=== PATIENT | female | born 1945 | race Caucasian/White ===

== ENCOUNTER 2021-11-06 19:04 | Emergency (ER) | payer OTHER, SELFPAY ==
[2021-11-06 19:15] VITALS: BP 195/121; PULSE 78; RESP 16; TEMP 36.3; O2SAT 96; BMI 31.1
--- NOTE | 2021-11-06 19:29 | ED.GENADULT ---
HPI - General Adult General Chief complaint: Nausea/Vomiting Stated complaint: Low Sodium Time Seen by Provider: 11/06/21 19:17 Source: patient History of Present Illness HPI narrative: 76-year-old female coming in today complaining of vomiting that started this morning. She states that she has vomited 4 or 5 times today and is unable to keep anything down. She does believe that she took her medications this morning in those did stay down. She denies fevers. Had an episode of chills earlier. Denies any diarrhea. Denies any urinary symptoms such as increased frequency, urgency or dysuria. Denies any blood in her vomitus. She denies any chest or abdominal pain. No significant headache. No weakness or dizziness. Denies any vertiginous symptoms. Denies any recent traveling. States that this has happened in the past when her sodium gets too low. States that she generally always feels better after a L of normal saline. Related Data Home Medications Medication Instructions Recorded Confirmed amlodipine 5 mg tablet 5 mg PO DAILY 11/06/21 11/06/21 losartan 100 mg tablet 100 mg PO DAILY 11/06/21 11/06/21 Allergies Allergy/AdvReac Type Severity Reaction Status Date / Time CAM Inhibitors Allergy Mild Cough Verified 11/06/21 19:18 Review of Systems Status of ROS: Reports: 10 or more systems reviewed and unremarkable except as noted in History and below [facility] Medical History Hypertension Hyponatremia Leukocytosis Surgical History H/O: hysterectomy History of bilateral knee replacement History of cholecystectomy Social History Smoking Status: Never smoker Do you use any of these nicotine containing products: None Second hand tobacco smoke exposure: No How often do you have a drink containing alcohol: never AUDIT-C Alcohol total score: 0 Non-prescribed substance use: denies use Exam Narrative: Exam Narrative: Well-nourished well-developed patient in no acute distress. Alert and oriented. Answers questions appropriately. Mood and affect are appropriate. Thoughts are goal oriented and rational. No tangential or magical thinking noted. Patient speaks in full sentences without needing to catch their breath. HEENT: Normocephalic atraumatic. Pupils are equally round reactive to light. Extraocular muscles are intact. Conjunctivae are moist without any icterus noted. Slightly dry mucous membranes. Posterior pharynx is normal. Neck is soft without any lymphadenopathy or thyromegaly. No masses are appreciated. Cardiovascular: Heart is regular rate and rhythm S1 and S2 are present without any murmurs. Lungs: Clear to auscultation bilaterally no wheezes rhonchi or rales are appreciated. Patient takes deep breaths without any discomfort. Abdomen: Soft and nontender nondistended with normal bowel sounds. No guarding or rebound. No masses or organomegaly appreciated. Extremities: Bilateral lower extremities are without edema. Normal DP and PT pulses. Skin: Well perfused without any obvious rashes. Const: Vital Signs, click to edit/add: Vital Signs - 24 hr 11/06/21 19:15 11/06/21 20:00 Temperature 97.3 F L Pulse Rate [Left] 78 78 Respiratory Rate 16 18 Blood Pressure [Ri t Upper Arm] 195/121 H 175/93 H Pulse Oximetry 96 99 Course Course Hospital Course: IV was established an IV fluids were started. Labs were drawn. Vital Signs Vital signs: Initial Vital Signs Temperature 97.3 F L 11/06/21 19:15 Temperature Source Temporal Artery Scan 11/06/21 19:15 Pulse Rate 78 11/06/21 19:15 Respiratory Rate 16 11/06/21 19:15 Blood Pressure 195/121 H 11/06/21 19:15 Blood Pressure Mean 145 11/06/21 19:15 Blood Pressure Position Semi-Fowlers 11/06/21 19:15 Pulse Oximetry 96 11/06/21 19:15 Oxygen Delivery Method 11/06/21 19:15 Vital Signs Temperature 97.3 F L 11/06/21 19:15 Pulse Rate 78 11/06/21 19:15 Respiratory Rate 16 11/06/21 19:15 Blood Pressure 195/121 H 11/06/21 19:15 Pulse Oximetry 96 11/06/21 19:15 Temperature 97.3 F L 11/06/21 19:15 Pulse Rate 78 11/06/21 20:00 Respiratory Rate 18 11/06/21 20:00 Blood Pressure 175/93 H 11/06/21 20:00 Pulse Oximetry 99 11/06/21 20:00 Medical Decision Making MDM Narrative Medical decision making narrative: 76-year-old female with episodes of vomiting and hyponatremia. Patient states that this has happened to her multiple times in the past. He received a L of normal saline while she was here did not have any more vomiting episodes. Patient will be discharged home with close followup recommended repeat lab work for her as well. Lab Data Lab results reviewed: Yes I reviewed the patient's lab results Lab results narrative: Her sodium was indeed low at 129. Lactate was up at 2.5. UA showing 2+ blood however only 0-2 RBCs on microscopic examination. Labs: Lab Results 11/06/21 11/06/21 11/06/21 Range/Units 19:27 19:27 19:40 WBC (4.50-11.00) K/uL RBC (4.00-5.20) m/uL Hgb (12.0-16.0) gm/dL Hct (33.0-51.0) % MCV (80-100) fL MCH (26-34) pg MCHC (32-36) gm/dL RDW Coeff of Jovany (11.5-15.5) % Plt Count (140-440) K/uL Neut % (Auto) (42.0-72.0) % Lymph % (Auto) (20-44) % [place] % (Auto) (0.0-11.0) % Eos % (Auto) (0.0-7.0) % Baso % (Auto) (0.0-3.0) % Neut # (Auto) (1.7-7.0) K/uL Lymph # (Auto) (0.90-2.90) K/uL [place] # (Auto) (0.00-0.90) K/UL Eos # (Auto) (0.00-0.50) K/uL Baso # (Auto) (0.00-0.30) K/uL Abs Immat Gran (auto) (0.00-0.30) K/uL Imm/Tot Granulo (auto) % Sodium (135-149) mmol/L Potassium (3.6-5.1) mmol/L Chloride (96-114) mmol/L Carbon Dioxide (20-32) mmol/L BUN (7-30) mg/dL Creatinine (0.5-1.5) mg/dL Estimated Creat Clear Glucose (60-115) mg/dL Lactate (0.5-1.9) mmol/L Calcium (8.4-10.6) mg/dL Total Bilirubin (0.1-1.5) mg/dL Direct Bilirubin (0.0-0.5) mg/dL AST (12-35) U/L ALT (4-35) U/L Alkaline Phosphatase (40-150) U/L Total Protein (6.0-8.3) g/dL Albumin (3.3-5.0) g/dL Urine Color Yellow (Yellow) Urine Appearance Clear (Clear) Urine pH 6.0 (5.0-8.5) Ur Specific [place] 1.025 (1.000-1.030) Urine Protein 2+ A (Negative) Urine Glucose (UA) Negative (Negative) Urine Ketones Trace A (Negative) Urine Blood 1+ A (Negative) Urine Nitrite Negative (Negative) Urine Bilirubin Negative (Negative) Urine Urobilinogen 0.2 (0.2-1.0) Ur Leukocyte Esterase Negative (Negative) Urine RBC 0-2 (0-2) Urine WBC 0-2 (0-5) Ur Squamous Epith Cells Few (None-Few) Urine Bacteria None (None) Urine Mucus Few A (None) SARS-CoV-2 (PCR) Negative SARS-CoV-2 (Negative) Influenza Type A (PCR) NEGATIVE (Negative) Influenza Type B (PCR) NEGATIVE (Negative) POC Troponin I 0.01 (0.01-0.04) ng/ml 11/06/21 11/06/21 11/06/21 Range/Units 19:50 19:50 19:50 WBC 7.95 (4.50-11.00) K/uL RBC 3.97 L (4.00-5.20) m/uL Hgb 13.6 (12.0-16.0) gm/dL Hct 39.1 (33.0-51.0) % MCV 99 (80-100) fL MCH 34 (26-34) pg MCHC 35 (32-36) gm/dL RDW Coeff of Jovany 11.7 (11.5-15.5) % Plt Count 381 (140-440) K/uL Neut % (Auto) 84.0 H (42.0-72.0) % Lymph % (Auto) 11.8 L (20-44) % [place] % (Auto) 2.8 (0.0-11.0) % Eos % (Auto) 0.0 (0.0-7.0) % Baso % (Auto) 0.9 (0.0-3.0) % Neut # (Auto) 6.70 (1.7-7.0) K/uL Lymph # (Auto) 0.90 (0.90-2.90) K/uL [place] # (Auto) 0.20 (0.00-0.90) K/UL Eos # (Auto) 0.00 (0.00-0.50) K/uL Baso # (Auto) 0.10 (0.00-0.30) K/uL Abs Immat Gran (auto) 0.00 (0.00-0.30) K/uL Imm/Tot Granulo (auto) 0.5 % Sodium 129 L (135-149) mmol/L Potassium 3.9 (3.6-5.1) mmol/L Chloride 97 (96-114) mmol/L Carbon Dioxide 21 (20-32) mmol/L BUN 6 L (7-30) mg/dL Creatinine 0.6 (0.5-1.5) mg/dL Estimated Creat Clear 39.04 Glucose 123 H (60-115) mg/dL Lactate 2.5 H (0.5-1.9) mmol/L Calcium 8.9 (8.4-10.6) mg/dL Total Bilirubin 0.6 (0.1-1.5) mg/dL Direct Bilirubin 0.3 (0.0-0.5) mg/dL AST 28 (12-35) U/L ALT 20 (4-35) U/L Alkaline Phosphatase 64 (40-150) U/L Total Protein 7.5 (6.0-8.3) g/dL Albumin 4.6 (3.3-5.0) g/dL Urine Color (Yellow) Urine Appearance (Clear) Urine pH (5.0-8.5) Ur Specific [place] (1.000-1.030) Urine Protein (Negative) Urine Glucose (UA) (Negative) Urine Ketones (Negative) Urine Blood (Negative) Urine Nitrite (Negative) Urine Bilirubin (Negative) Urine Urobilinogen (0.2-1.0) Ur Leukocyte Esterase (Negative) Urine RBC (0-2) Urine WBC (0-5) Ur Squamous Epith Cells (None-Few) Urine Bacteria (None) Urine Mucus (None) SARS-CoV-2 (PCR) (Negative) Influenza Type A (PCR) (Negative) Influenza Type B (PCR) (Negative) POC Troponin I (0.01-0.04) ng/ml ECG Data Attestation: I personally reviewed and interpreted this ECG as follows: (Normal sinus rhythm) Discharge Plan Discharge Clinical Impression: Hyponatremia, Vomiting Patient Disposition: Home, Self-Care Condition: Stable Additional Instructions: Recommend you follow-up with your primary care provider this coming week and have your sodium levels rechecked. Also recommend taking [id number] sodium chloride tablets if you have not already been doing so. Prescriptions: No Action amlodipine 5 mg tablet 5 mg PO DAILY 0RF losartan 100 mg tablet 100 mg PO DAILY 0RF Follow Up/Referrals: Aleisha Sagastume PA-C [Primary Care Provider] - Stand Alone Forms: [facility] Info Instructions
[2021-11-06] MEDS: 0.9 % SODIUM CHLORIDE 1000 ml 1,000 ML IV (19:50)
[2021-11-06 19:53] LABS: Appearance Urine Clear (Clear); Bilirubin Urine Negative (Negative); Blood Urine 1+ (Negative); Color Urine Yellow (Yellow); Glucose Urine Negative (Negative); Ketones Urine Trace (Negative); Leukocyte Esterase Urine Negative (Negative); Nitrite Urine Negative (Negative); Protein Urine 2+ (Negative); Specific Gravity Urine 1.025 (1.000-1.030); Urobilinogen Urine 0.2 (0.2-1.0)
[2021-11-06 20:00] VITALS: BP 175/93; PULSE 78; RESP 18; O2SAT 99
[2021-11-06 20:03] LABS: Lactate* 2.5 mmol/L (0.5-1.9)
[2021-11-06 20:06] LABS: Mucus Urine Few; RBC Urine 0-2 (0-2); Squamous Epithelial Cell Urine Few (None-Few); WBC Urine 0-2 (0-5)
[2021-11-06 20:11] LABS: Troponin, Point-of-Care* 0.01 ng/ml (0.01-0.04)
[2021-11-06 20:13] LABS: Red Blood Count 3.97 m/uL (4.00-5.20); White Blood Count* 7.95 K/uL (4.50-11.00)
[2021-11-06 20:14] LABS: Hematocrit 39.1 % (33.0-51.0); Hemoglobin* 13.6 gm/dL (12.0-16.0); Mean Corpuscular HGB Conc 35 gm/dL (32-36); Mean Corpuscular Hemoglobin 34 pg (26-34); Mean Corpuscular Volume 99 fL (80-100); Platelet Count* 381 K/uL (140-440); RDW Coefficient of Variation % 11.7 % (11.5-15.5)
[2021-11-06 20:15] LABS: Basophils Percent Auto 0.9 % (0.0-3.0); Immature Granulocytes Pct Auto 0.5 %; Lymphocytes Percent Auto 11.8 % (20-44); Monocytes Percent Auto 2.8 % (0.0-11.0); Slide Review Reflex No
[2021-11-06 20:20] LABS: Albumin* 4.6 g/dL (3.3-5.0); Chloride* 97 mmol/L (96-114); Potassium* 3.9 mmol/L (3.6-5.1); Sodium* 129 mmol/L (135-149)
[2021-11-06 20:22] LABS: Creatinine* 0.6 mg/dL (0.5-1.5); Est. Creatinine Clearance* 39.04; Estimated Glomerular Filt Rate 94.13
[2021-11-06 20:23] LABS: Alanine Aminotransferase* 20 U/L (4-35); Alkaline Phosphatase* 64 U/L (40-150); Aspartate Amino Transferase* 28 U/L (12-35); Bilirubin Direct* 0.3 mg/dL (0.0-0.5); Bilirubin Total* 0.6 mg/dL (0.1-1.5); Blood Urea Nitrogen* 6 mg/dL (7-30); Calcium* 8.9 mg/dL (8.4-10.6); Carbon Dioxide* 21 mmol/L (20-32); Glucose* 123 mg/dL (60-115); Total Protein* 7.5 g/dL (6.0-8.3)
[2021-11-06 21:20] LABS: PCR FLU A NEGATIVE (Negative); PCR FLU B NEGATIVE (Negative); SARS PCR* Negative SARS-CoV-2 (Negative)
== END 2021-11-06 21:56 | disposition home or self-care (01) ==
PROVIDERS: Emergency Provider Family Medicine; PCP Physician Assistant Medical
DX: E87.1 Hypo-osmolality and hyponatremia (principal); R11.10 Vomiting, unspecified
CPT/HCPCS: 36415; 80048; 80076; 81001; 83605; 84484; 85025; 87086; 87502; 87635; 93005; 96360; 99284; J7030

== ENCOUNTER 2022-01-16 09:13 | Outpatient (CLI) | payer OTHER, MEDICARE, SELFPAY ==
[2022-01-16 14:48] LABS: Chloride* 101 mmol/L (96-114); Potassium* 4.7 mmol/L (3.6-5.1); Sodium* 134 mmol/L (135-149)
[2022-01-16 14:51] LABS: Blood Urea Nitrogen* 7 mg/dL (7-30); Carbon Dioxide* 25 mmol/L (20-32); Creatinine* 0.6 mg/dL (0.5-1.5); Estimated Glomerular Filt Rate 94 ml/min
[2022-01-16 14:52] LABS: Calcium* 9.8 mg/dL (8.4-10.6); Glucose* 104 mg/dL (60-115)
== END 2022-01-16 09:14 | disposition home or self-care (01) ==
LOC: LKVREF 09:58
PROVIDERS: PCP Physician Assistant Medical; Visit Provider Physician Assistant Medical
DX: E87.1 Hypo-osmolality and hyponatremia (principal)
CPT/HCPCS: 80048

== ENCOUNTER 2022-05-09 10:58 | Outpatient (CLI) | payer OTHER, SELFPAY ==
[2022-05-09 14:00] LABS: Chloride* 90 mmol/L (96-114); Potassium* 4.8 mmol/L (3.6-5.1); Sodium* 125 mmol/L (135-149)
[2022-05-09 14:03] LABS: Blood Urea Nitrogen* 8 mg/dL (7-30); Carbon Dioxide* 28 mmol/L (20-32); Creatinine* 0.8 mg/dL (0.5-1.5); Estimated Glomerular Filt Rate 77 ml/min
[2022-05-09 14:04] LABS: Calcium* 9.6 mg/dL (8.4-10.6); Glucose* 122 mg/dL (60-115)
== END 2022-05-09 10:59 | disposition home or self-care (01) ==
PROVIDERS: PCP Physician Assistant Medical; Visit Provider Physician Assistant Medical
DX: E87.1 Hypo-osmolality and hyponatremia (principal)
CPT/HCPCS: 80048

== ENCOUNTER 2022-05-09 14:19 | Emergency (ER) | payer OTHER, SELFPAY ==
[2022-05-09 14:27] VITALS: BP 120/81; PULSE 104; RESP 18; TEMP 36.8; O2SAT 98; BMI 29.2
--- NOTE | 2022-05-09 14:47 | ED.GENADULT ---
HPI - General Adult General Time Seen by Provider: 14:47 Date Seen: 05/09/22 Chief complaint: Dizziness/Vertigo Stated complaint: Vomiting, headache, lethargy Time Seen by Provider: 05/09/22 14:28 Source: patient Mode of arrival: ambulatory Limitations: no limitations History of Present Illness HPI narrative: 77-year-old female who comes in today with fatigue, headache, and vomiting. Symptoms have been going on couple of days. She has a mild frontal headache, says she has been sleeping a lot the last couple of days. Vomiting started 2 days ago. Says she has had similar symptoms with hyponatremia. She denies abdominal pain, diarrhea, urinary symptoms, chest pain, shortness of breath. No new medications. Related Data Home Medications Medication Instructions Recorded Confirmed Sodium choloride PO 11/21/21 12/07/21 ondansetron HCl 4 mg tablet mg PO PRN 11/21/21 12/07/21 Previous Rx's Medication Instructions Recorded amlodipine 5 mg tablet 5 mg PO DAILY #90 tabs 12/08/21 losartan 100 mg tablet 100 mg PO DAILY #90 tabs 12/08/21 metoprolol succinate 25 mg 25 mg PO QDAY #90 tabs 02/17/22 tablet,extended release 24 hr ondansetron 4 mg disintegrating 4 mg PO Q8H #15 tabs 05/09/22 tablet Allergies Allergy/AdvReac Type Severity Reaction Status Date / Time CAM Inhibitors Allergy Mild Cough Verified 05/09/22 14:34 fosinopril Allergy Mild coughing Verified 05/09/22 14:34 lisinopril Allergy Mild coughing Verified 05/09/22 14:34 PFSH PFSH Medical History (Updated 05/09/22 @ 16:56 by Wilfrido Roberto MD) Cervical lymphadenopathy Hypertension Hyponatremia Surgical History (Updated 11/15/21 @ 13:51 by Rossy Palomo) H/O: hysterectomy History of bilateral knee replacement History of cholecystectomy Status post total knee replacement Social History Smoking Status: Never smoker Do you use any of these nicotine containing products: None Second hand tobacco smoke exposure: No How often do you have a drink containing alcohol: never AUDIT-C Alcohol total score: 0 Non-prescribed substance use: denies use Exam Narrative: Exam Narrative: General: Well-developed and well-nourished, no acute distress Head: Atraumatic and normocephalic Eyes: Pupils are equal reactive, extraocular motions intact, conjunctiva clear ENT: External nose and ears are normal, posterior pharynx without erythema or exudate Neck: No midline cervical tenderness, full spontaneous range of motion the neck, trachea midline, no adenopathy Heart: Regular rate and rhythm no murmurs or thrills Lungs: Clear to auscultation bilaterally without wheezes or crackles Abdomen: Soft, nontender, nondistended with active bowel sounds Musculoskeletal: No tenderness, deformity, or edema Neurologic: Awake, alert, and oriented x3, no gross focal neurologic deficits, cranial nerves intact as tested Psych: Mood and affect are appropriate Skin: No rashes Const: Vital Signs, click to edit/add: Vital Signs - 24 hr 05/09/22 14:27 05/09/22 16:04 Temperature 98.2 F Pulse Rate [Pulse Oximeter] 104 H 79 Respiratory Rate 18 16 Blood Pressure [Ri ght Upper Arm] 120/81 Pulse Oximetry 98 Oxygen Delivery Me thod Room Air Course Course Hospital Course: External records reviewed show the patient had sodium level checked today earlier and it was 125. No associated note with this. Will recheck, fluids are ordered. Given symptomatic hyponatremia, patient will likely need to be admitted for further evaluation and treatment. Reevaluation(s) Reevaluation #1: Labs independently interpreted by me demonstrate mild leukocytosis, no other acute abnormality of the CBC. Sodium is 125 and chloride is 90. Patient is not on any diuretics, does take amlodipine and losartan. She says she has not been eating and drinking well recently and so the low sodium may be due to decreased intake. Patient has had consistent hyponatremi for the several months, although usually more mild. Time: 16:34 Reevaluation #2: Patient rechecked. She is feeling better after fluids, Toradol, Zofran. We discussed findings on labs today which show hyponatremia but not much else. Her serum osmolality is low consistent with 2 hyponatremia. Recommend attention to free water intake, also stop losartan for now. Follow-up in clinic in 2-3 days. Further discussion with patient's spouse who is in the room now is that patient has a history of low sodium and has never really had it is evaluation for this. Recommend further urine studies and consider consultation with Nephrology if persists. As this appears to be a chronic problem, at this point do not think patient needs to be admitted but does need to be on a fluid restriction with close follow-up. Time: 16:51 Vital Signs Vital signs: Initial Vital Signs Temperature 98.2 F 05/09/22 14:27 Temperature Source Temporal Artery Scan 05/09/22 14:27 Pulse Rate 104 H 05/09/22 14:27 Pulse Rhythm 05/09/22 14:27 Pulse Strength 3+ Normal 05/09/22 14:27 Respiratory Rate 18 05/09/22 14:27 Blood Pressure 120/81 05/09/22 14:27 Blood Pressure Mean 94 05/09/22 14:27 Blood Pressure Position Sitting 05/09/22 14:27 Pulse Oximetry 98 05/09/22 14:27 Oxygen Delivery Method 05/09/22 14:27 Vital Signs Temperature 98.2 F 05/09/22 14:27 Pulse Rate 104 H 05/09/22 14:27 Respiratory Rate 18 05/09/22 14:27 Blood Pressure 120/81 05/09/22 14:27 Pulse Oximetry 98 05/09/22 14:27 Oxygen Delivery Method 05/09/22 14:27 Temperature 98.2 F 05/09/22 14:27 Pulse Rate 79 05/09/22 16:04 Respiratory Rate 16 05/09/22 16:04 Blood Pressure 120/81 05/09/22 14:27 Pulse Oximetry 98 05/09/22 14:27 Oxygen Delivery Method 05/09/22 14:27 Medical Decision Making Lab Data Labs: Lab Results 05/09/22 05/09/22 05/09/22 Range/Units 14:44 14:44 15:01 WBC 11.13 H (4.50-11.00) K/uL RBC 4.38 (4.00-5.20) m/uL Hgb 15.0 (12.0-16.0) gm/dL Hct 41.5 (33.0-51.0) % MCV 95 (80-100) fL MCH 34 (26-34) pg MCHC 36 (32-36) gm/dL RDW Coeff of Jovany 11.3 L (11.5-15.5) % Plt Count 447 H (140-440) K/uL Neut % (Auto) 71.5 (42.0-72.0) % Lymph % (Auto) 18.1 L (20-44) % [place] % (Auto) 9.0 (0.0-11.0) % Eos % (Auto) 0.1 (0.0-7.0) % Baso % (Auto) 0.3 (0.0-3.0) % Neut # (Auto) 8.00 H (1.7-7.0) K/uL Lymph # (Auto) 2.00 (0.90-2.90) K/uL [place] # (Auto) 1.00 H (0.00-0.90) K/UL Eos # (Auto) 0.00 (0.00-0.50) K/uL Baso # (Auto) 0.00 (0.00-0.30) K/uL Sodium 125 L (135-149) mmol/L Potassium 3.8 (3.6-5.1) mmol/L Chloride 94 L (96-114) mmol/L Carbon Dioxide 25 (20-32) mmol/L BUN 8 (7-30) mg/dL Creatinine 0.6 (0.5-1.5) mg/dL Estimated Creat Clear 40.21 Estimated GFR 94 ml/min Glucose 117 H (60-115) mg/dL Calcium 9.1 (8.4-10.6) mg/dL Urine Color Yellow (Yellow) Urine Appearance Clear (Clear) Urine pH 7.5 (5.0-8.5) Ur Specific [place] 1.015 (1.000-1.030) Urine Protein Negative (Negative) Urine Glucose (UA) Negative (Negative) Urine Ketones Negative (Negative) Urine Blood Negative (Negative) Urine Nitrite Negative (Negative) Urine Bilirubin Negative (Negative) Urine Urobilinogen 0.2 (0.2-1.0) Ur Leukocyte Esterase Negative (Negative) Urine RBC 0-2 (0-2) Urine WBC 0-2 (0-5) Ur Squamous Epith Cells None (None-Few) Urine Bacteria Few A (None) Discharge Plan Discharge Clinical Impression: Hyponatremia Patient Disposition: Home w/ Parent or Adult Condition: Improved Instructions: Hyponatremia (ED) Additional Instructions: Stop losartan. Follow-up with your primary care provider in 2-3 days for recheck. Activity Level: No Restrictions Discharge Diet: 1500 ml Fluid Restriction Prescriptions: New ondansetron 4 mg tablet,disintegrating 4 mg PO Q8H Qty: 15 0RF No Action ondansetron HCl 4 mg tablet PO PRN Sodium choloride PO amlodipine 5 mg tablet 5 mg PO DAILY Qty: 90 3RF Rx Instructions: Once daily for high blood pressure losartan 100 mg tablet 100 mg PO DAILY Qty: 90 0RF Rx Instructions: Once daily for high blood pressure metoprolol succinate 25 mg tablet extended release 24 hr 25 mg PO QDAY Qty: 90 0RF Rx Instructions: for blood pressure Follow Up/Referrals: Aleisha Sagastume PA-C [Primary Care Provider] - Stand Alone Forms: [facility] Info Instructions
[2022-05-09 15:04] LABS: Basophils Percent Auto 0.3 % (0.0-3.0); Eosinophils Percent Auto 0.1 % (0.0-7.0); Hematocrit 41.5 % (33.0-51.0); Lymphocytes Percent Auto 18.1 % (20-44); Mean Corpuscular HGB Conc 36 gm/dL (32-36); Mean Corpuscular Hemoglobin 34 pg (26-34); Mean Corpuscular Volume 95 fL (80-100); Neutrophils Percent Auto 71.5 % (42.0-72.0); Platelet Count* 447 K/uL (140-440); RDW Coefficient of Variation % 11.3 % (11.5-15.5); Red Blood Count 4.38 m/uL (4.00-5.20); White Blood Count* 11.13 K/uL (4.50-11.00)
[2022-05-09 15:08] LABS: Slide Review Reflex No
[2022-05-09] MEDS: 0.9 % SODIUM CHLORIDE 1000 ml 1,000 ML IV (15:15)
[2022-05-09 15:49] LABS: Appearance Urine Clear (Clear); Bilirubin Urine Negative (Negative); Blood Urine Negative (Negative); Color Urine Yellow (Yellow); Glucose Urine Negative (Negative); Ketones Urine Negative (Negative); Leukocyte Esterase Urine Negative (Negative); Nitrite Urine Negative (Negative); Protein Urine Negative (Negative); Specific Gravity Urine 1.015 (1.000-1.030); Urobilinogen Urine 0.2 (0.2-1.0); pH Urine 7.5 (5.0-8.5)
[2022-05-09 16:04] VITALS: PULSE 79; RESP 16
[2022-05-09 16:17] LABS: Bacteria Urine Few; RBC Urine 0-2 (0-2); WBC Urine 0-2 (0-5)
[2022-05-09 16:23] LABS: Chloride* 94 mmol/L (96-114); Potassium* 3.8 mmol/L (3.6-5.1); Sodium* 125 mmol/L (135-149)
[2022-05-09 16:26] LABS: Blood Urea Nitrogen* 8 mg/dL (7-30); Carbon Dioxide* 25 mmol/L (20-32); Creatinine* 0.6 mg/dL (0.5-1.5); Est. Creatinine Clearance* 40.21; Estimated Glomerular Filt Rate 94 ml/min
[2022-05-09 16:27] LABS: Calcium* 9.1 mg/dL (8.4-10.6); Glucose* 117 mg/dL (60-115)
[2022-05-09 17:10] VITALS: BP 151/92; PULSE 101; RESP 18; O2SAT 98
[2022-05-12 13:38] LABS: Hours Collected Not Provided hr; Total Volume Not Provided mL
== END 2022-05-09 17:19 | disposition home or self-care (01) ==
PROVIDERS: Emergency Provider Family Medicine; PCP Physician Assistant Medical
DX: E87.1 Hypo-osmolality and hyponatremia (principal); R39.9 Unspecified symptoms and signs involving the genitourinary system
CPT/HCPCS: 36415; 80048; 81001; 84300; 85025; 87086; 93005; 99283; 99284; J7030

== ENCOUNTER 2022-05-15 10:00 | Outpatient (CLI) | payer OTHER, SELFPAY | END 2022-05-15 10:01 | disposition home or self-care (01) | LOC: LKVREF 05-17 11:21 | PROVIDERS: PCP Physician Assistant Medical; Visit Provider Family Medicine | DX: R53.83 Other fatigue (principal); I10 Essential (primary) hypertension; E87.1 Hypo-osmolality and hyponatremia | CPT/HCPCS: 80048 ==

== ENCOUNTER 2022-06-27 13:18 | Outpatient (CLI) | payer OTHER, SELFPAY ==
--- NOTE | 2022-06-27 13:40 | CRLHL7_ITS ---
For Patients: As a result of the Cures Act, medical imaging exams and procedure reports are released immediately into your electronic medical record. You may view this report before your referring provider. If you have questions, please contact your health care provider. BILATERAL SCREENING MAMMOGRAM WITH COMPUTER-AIDED DETECTION AND TOMOSYNTHESIS TECHNIQUE: CC and MLO views were obtained. These mammographic images have been obtained using full-field digital technique. These mammographic images were interpreted with the benefit of computer-aided detection. Breast Tomosynthesis was used in this interpretation. COMPARISON FILM: 04/12/2021, 03/04/2020, 01/28/2019. FINDINGS: The breasts are almost entirely fatty IMPRESSION: There is no radiographic evidence for malignancy. ASSESSMENT: BI-RADS Category 2: Benign RECOMMENDATION: Routine screening mammogram in 1 year. A lay language report of this examination will be provided to the patient. Chase Riley M.D. Diagnostic/Nuclear Medicine Radiologist [email or web address] TAMIA/Dictated by: Chase Riley MD @ 06/28/2022 8:42:00 AM (Electronically Signed)
== END 2022-06-27 13:19 | disposition home or self-care (01) ==
PROVIDERS: PCP Physician Assistant Medical; Visit Provider Physician Assistant Medical
DX: Z12.31 Encounter for screening mammogram for malignant neoplasm of breast (principal)
CPT/HCPCS: 77063; 77067

== ENCOUNTER 2023-05-16 07:58 | Outpatient (CLI) | payer OTHER, SELFPAY | END 2023-05-16 07:59 | disposition home or self-care (01) | PROVIDERS: PCP Physician Assistant Medical; Visit Provider Physician Assistant Medical | DX: Z00.00 Encounter for general adult medical examination without abnormal findings (principal); I10 Essential (primary) hypertension; E87.1 Hypo-osmolality and hyponatremia; Z13.6 Encounter for screening for cardiovascular disorders; Z13.29 Encounter for screening for other suspected endocrine disorder | CPT/HCPCS: 80053; 80061; 84443 ==

== ENCOUNTER 2023-07-16 14:33 | Outpatient (CLI) | payer OTHER, SELFPAY ==
--- NOTE | 2023-07-16 15:00 | MM_ITS ---
Patient: YAZAN VALADEZ Facility:?[facility] Patient ID:?[id number] Site Patient ID:?[id number]. Site :?[id number] Study:?XRay-Breast Bilateral 3D W/CAD-07/16/2023 3:03:00 PM Ordering Physician:Tiana Final Report: BILATERAL SCREENING MAMMOGRAM WITH COMPUTER-AIDED DETECTION AND TOMOSYNTHESIS TECHNIQUE: CC and MLO views were obtained. These mammographic images have been obtained using full-field digital technique. These mammographic images were interpreted with the benefit of computer-aided detection. Breast Tomosynthesis was used in this interpretation. COMPARISON FILM: 06/27/22, 04/12/21, 03/04/20. FINDINGS: There are scattered areas of fibroglandular density. IMPRESSION: There is no radiographic evidence for malignancy. ASSESSMENT: BI-RADS Category 2: Benign RECOMMENDATION: Routine screening mammogram in 1 year. A lay language report of this examination will be provided to the patient. Jey Carl M.D. Diagnostic Radiologist [email or web address] DSM/sp R& Transcribed: 1:50 p.m. SP/Dictated by: Jey Carl MD @ 07/17/2023 8:50:00 AM Signed by:?Jey Carl MD @07/17/2023 2:48:31 PM (Electronic Signature)
== END 2023-07-16 14:34 | disposition home or self-care (01) ==
LOC: MAMMO 14:34
PROVIDERS: PCP Physician Assistant Medical; Visit Provider Physician Assistant Medical
DX: Z12.31 Encounter for screening mammogram for malignant neoplasm of breast (principal)
CPT/HCPCS: 77063; 77067

== ENCOUNTER 2024-07-28 13:03 | Outpatient (CLI) | payer OTHER, SELFPAY ==
--- NOTE | 2024-07-28 13:20 | CRLHL7_ITS ---
For Patients: As a result of the Century Cures Act, medical imaging exams and procedure reports are released immediately into your electronic medical record. You may view this report before your referring provider. If you have questions, please contact your health care provider. BILATERAL SCREENING MAMMOGRAM WITH COMPUTER-AIDED DETECTION AND TOMOSYNTHESIS TECHNIQUE: CC and MLO views were obtained. These mammographic images have been obtained using full-field digital technique. These mammographic images were interpreted with the benefit of computer-aided detection. Breast Tomosynthesis was used in this interpretation. COMPARISON FILM: 07/16/23, 06/27/22, 04/12/21. FINDINGS: There are scattered areas of fibroglandular density. IMPRESSION: There is no radiographic evidence for malignancy. ASSESSMENT: BI-RADS Category 2: Benign RECOMMENDATION: Routine screening mammogram in 1 year. A lay language report of this examination will be provided to the patient. Jey Carl M.D. Diagnostic Radiologist [email or web address] SP/Dictated by: Jey Carl MD @ 07/30/2024 8:52:00 AM (Electronically Signed)
== END 2024-07-28 13:04 | disposition home or self-care (01) ==
LOC: MAMMO 13:04
PROVIDERS: PCP Physician Assistant Medical; Visit Provider Physician Assistant Medical
DX: Z12.31 Encounter for screening mammogram for malignant neoplasm of breast (principal)
CPT/HCPCS: 77063; 77067

== ENCOUNTER 2024-08-29 08:20 | Outpatient (CLI) | payer OTHER, SELFPAY | END 2024-08-29 08:21 | disposition home or self-care (01) | LOC: NFLDREF 09-03 18:46 | PROVIDERS: PCP Physician Assistant Medical; Referring Provider Physician Assistant Medical; Visit Provider Physician Assistant Medical | DX: E78.5 Hyperlipidemia, unspecified (principal); I10 Essential (primary) hypertension; E87.1 Hypo-osmolality and hyponatremia | CPT/HCPCS: 80053; 80061 ==

== ENCOUNTER 2024-10-01 15:11 | Outpatient (CLI) | payer OTHER, SELFPAY ==
--- NOTE | 2024-10-01 15:30 | CRLHL7_ITS ---
For Patients: As a result of the Century Cures Act, medical imaging exams and procedure reports are released immediately into your electronic medical record. You may view this report before your referring provider. If you have questions, please contact your health care provider. DXA BONE MINERAL DENSITY STUDY Current height (in): 62. Weight (lb): 176.0 Menopause age: 34. Ethnicity: White. 1. Have you had a previous hip or vertebral fracture? No. 2. Have you had any fractures during your adult life which did not result from significant trauma (e.g., auto accident)? Yes. 3. Did either of your parents have a hip fracture? No. 4. Do you smoke? No. 5. Have you ever taken Glucocorticoids? No. 6. Do you have rheumatoid arthritis? No. 7. Do you have secondary osteoporosis? No. 8. Do you drink 3 or more alcoholic drinks per day? No. 9. Are you being treated for osteoporosis? No. 10. Have you ever taken any of the following medications: Actonel, Evista, Fosamax, Miacalcin, Reclast, Boniva, Forteo, HRT (i.e. estrogen/hormone therapy), Protelos, Prolia, Vitamin D, Calcium, other ??? please specify. ANSWER: No. 11. Do you have any of the following medical conditions: Anorexia or bulimia, asthma or emphysema, end stage renal disease, hyperparathyroidism, any seizure disorders, cancer, inflammatory bowel diseases, hysterectomy, other ??? please specify. ANSWER: Yes, Cancer and Hysterectomy. 12. What was your maximum height (inches)? 63. 13. Do you perform weight bearing exercise regularly? No. 14. Do you regularly consume dairy products? No. 15. Do you drink caffeinated beverages? Yes. 16. At what age did your period start? 15. 17. Are you premenopausal? No. 18. How many full term pregnancies have you had? 5. 19. Have you ever missed your period for more than 6 months in a row (not including or menopause)? No. TECHNIQUE: Bone mineral density study was performed using the [employer]ur[employer] cosmetics. FINDINGS: The results of the study expressed as bone mineral density (BMD) are as follows: Lumbar spine L1 to L3: BMD: 1.176 g/cm2. T-score: 1.4. Z-score: 3.9. Neck Left: BMD: 0.600 g/cm2. T-score: -2.2. Z-score: -0.1. Right: BMD: 0.624 g/cm2. T-score: -2.0. Z-score: 0.2. Total Left: BMD: 0.739 g/cm2. T-score: -1.7. Z-score: 0.3. Right: BMD: 0.751 g/cm2. T-score: -1.6. Z-score: 0.4. IMPRESSION: Osteopenia. COMPARISON: Compared with scan of 05/12/2020, the bone mineral density has decreased by 1.6 percent at the spine and increased by 8.3 percent at the hip. FRAX 10-year Fracture Risk Major Osteoporotic Fracture: 22 percent Hip Fracture: 6.0 percent Reported Risk Factors: [place] () Neck BMD=0.600, BMI=32.2, Previous Fracture Jey Carl M.D. Diagnostic Radiologist [email or web address] SHANNAN/mary DW/Dictated by: Jey Carl MD @ 10/06/2024 8:57:00 AM (Electronically Signed)
== END 2024-10-01 15:12 | disposition home or self-care (01) ==
LOC: RAD 15:11
PROVIDERS: PCP Physician Assistant Medical; Visit Provider Physician Assistant Medical
DX: Z13.820 Encounter for screening for osteoporosis (principal); M85.89 Other specified disorders of bone density and structure, multiple sites; Z78.0 Asymptomatic menopausal state
CPT/HCPCS: 77080

== ENCOUNTER 2025-04-19 16:36 | Emergency (ER) | payer OTHER, SELFPAY ==
--- OUTSIDE RECORDS SUMMARY | 2025-04-16 07:10 | XMS_ITS | Encounter Summary ---
Author Organization Formerly [facility] Address [address] [address] Care Team Providers Care Tube Bending Machine Operator Name Role Phone Aminta Brizuela MD Primary Care Provider [phone] Reason for Visit * ReasonCommentsRestorative ServicesComposite 32,23 Encounter Details DateTypeDepartmentCare Team (Latest Contact Info)Knynpozngas11/18/2025 7:10 AM CSTOffice Visit [facility] [place] [address] [place] [phone] Tabitha Maldonado DDS [address] [place] [address] Restorative Services (Composite 32,23) Social History Tobacco UseTypesPacks/DayYears UsedDateSmoking Tobacco: NeverSmokeless Tobacco: NeverAlcohol UseStandard Drinks/WeekCommentsNo5 (1 standard drink = 0.6 oz pure alcohol)CommentsNoSex and Gender InformationValueDate RecordedSex Assigned at BirthNot on fileLegal NdmMoxgqd39/10/2012 4:22 AM CDTGender Identity Not on fileSexual OrientationNot on fileOccupationIndustryJob Start DateJob End DateADMINISTRATORNot on fileNot on fileNot on filedocumented as of this encounter Progress Notes * Tabitha Maldonado DDS - 04/16/2025 7:10 AM CST DENTAL VISIT NOTE Subjective Reason for Visit/Chief Complaint: Marielle is a 80 y.o. female who presents for Restorative Services (Composite 32,23) Chief Complaint: No CC Objective/Assessment Chart Review: The following information was reviewed with the patient: Medical history, Dental history, Problem list, Periodontal charting, and Radiographs. Diagnosis: Fractured dental restorative material (primary encounter diagnosis) Prognosis: #23, #32 Favorable Plan Treatment Discussion: I discussed the Dental findings, Prognosis, Treatment options, Risks and complications associated with procedure, and Billing/Treatment estimate with the patient. All questions answered and the patient gave informed consent to proceed with dental treatment/services. Procedural Pause: Patient identity verified: Yes Treatment plan/site verified with the patient: Yes Instruments/equipment verified: Yes Any medication/allergy contraindications: No Completed Procedures: Anesthesia: Topical with 20% benzocaine 1.0 carpules 2% lidocaine with 1:100,000 epinephrine was administered with GABRIELA in Mandibular right No adverse side effects observed. Anesthesia was administered by Tabitha Maldonado DDS . Composite Baptism, #23, #32: Prepared with complete caries removal and minimal removal of tooth structure Isolated area with high speed suction, cotton rolls, and a cheek guard. Liner/Varnish/Base: N/A Bonding with Scotchbond Langford Plus material Preparation filled with composite material : Shade: A2 Polishing adjuncts: soflex discs and enhance polishing Composite Burs Verified occlusion, contacts, margins, and aesthetics Post-Op Instructions: Patient was advised of normal post-operative instructions and potential for post-operative sensitivity Care was assisted by MEREDITH Walden Next Planned Visit: Recall Tabitha Maldonado DDS 04/16/2025, 8:51 AM CC: [place] SCIENCE PROFESSOR documented in this encounter Plan of Treatment DateTypeDepartmentCare Team (Latest Contact Info)Lbsyzqzqsbl85/13/2026 10:30 AM CDTAppMission Hospital [facility] [address] [place] [phone] Sera Miller, [facility] [address] [place] [address] documented as of this encounter Procedures Procedure NamePriorityDate/TimeAssociated VhuhedconOezryxjz50 MO RESIN-BASED COMPOSITE-2 SURF-KAOFLUQGLWhlzljh98/18/2025 7:10 AM SOCIAL SCIENCE PROFESSOR Fractured dental restorative material 23 F COMPOSITE-1 SURFACE QLIACQZUFwhzfir60/18/2025 7:10 AM SOCIAL SCIENCE PROFESSOR Fractured dental restorative material documented in this encounter Visit Diagnoses Diagnosis Fractured dental restorative material- Primary Other unsatisfactory restorationist of existing tooth documented in this encounter Care Teams Team MemberRelationshipSpecialtyStart [place] [address] [place] [address] PCP - GeneralFamily Practice09/28/17documented as of this encounter
--- OUTSIDE RECORDS SUMMARY | 2025-04-19 16:38 | XMS_ITS | Clinical Summary ---
Author Organization [facility] Address [address] [place] [address] Care Team Providers Care Trolley Collector Name Role Phone Anabel Newby MD Primary Care Provider [phone] Allergies Active AllergyReactionsCriticalityNoted DateCommentsAce InhibitorsCough 07/05/20110643QjzfzvrwpNlhkzogqquih92/07/2012 intolerant Medications MedicationSigDispense QuantityRefillsLast FilledStart DateEnd DateStatus LOSARTAN POTASSIUM (LOSARTAN ORAL) Take 1 tablet by mouth once daily. Patient does not remember doseActive atenolol (TENORMIN) 25 mg tablet Take 25 mg by mouth once daily. Patient states she is starting this medication 07/06/11 - after stress testActive aspirin 81 mg tablet Take 81 mg by mouth once daily with a meal.Active MULTIVITAMIN ORAL Take 1 tablet by mouth once daily.Active DOCOSAHEXANOIC ACID/EPA (FISH OIL ORAL) Take 1 tablet by mouth once daily.Active ZINC ORAL Take 1 tablet by mouth once daily.Active CALCIUM ORAL Take 1 tablet by mouth once daily.Active MAGNESIUM ORAL Take 1 tablet by mouth once daily.Active Family History Medical HistoryRelationNameCommentsCancer-breastNo Family History Social History Tobacco UseTypesPacks/DayYears UsedDateSmoking Tobacco: Never Assessed CommentsUnknownSex and Gender InformationValueDate RecordedSex Assigned at Not on fileLegal SzbHylltq01/14/2013 6:23 AM CSTGender IdentityNot on fileSexual OrientationNot on file Plan of Treatment Not on file Insurance [employer] [id number] Care Teams Team MemberRelationshipSpecialtyStart DateEnd Date Anabel Newby MD PCP - General05/21/09
--- OUTSIDE RECORDS SUMMARY | 2025-04-19 16:38 | XMS_ITS | Clinical Summary ---
Author Organization [facility] Address [address], [place] [address] Care Team Providers Care Computer Information Systems Instructor Name Role Phone Aminta Brizuela MD Primary Care Provider [phone] Source Comments You are receiving this document as you are listed as the primary care provider,follow-up provider, or the patient has been referred to you for consultation.This is in compliance with the Medicare andMedicaid EHR Incentive Program,which states Providers who transition their patient to another setting of careor provider of care or refers their patient to another provider of care shouldprovide summary care record for each transition of care or referral. [facility] Allerg[facility] Active AllergyReactionsCriticalityNoted TznhNqaiyjemAwbqdcaciaBuiur41/18/2017Ace ZctfmbfswgZwajh42/11/4777KlbzntqukHquvudgcnixp65/07/2012 intolerant Medications MedicationSigDispense QuantityRefillsLast FilledStart DateEnd DateStatus aspirin (ASPIRIN, ENTERIC-COATED) 81 MG enteric coated tablet Take 81 mg by mouth daily.Active Multiple Vitamins-Calcium (ONE-A-DAY WOMENS OR) Active Polyethyl Glycol-Propyl Glycol (SYSTANE OP) Active metoprolol succinate (TOPROL XL) 50 MG 24 hour release tablet Take 1 Tab by mouth daily. 90 Tab Active Additional Information Patient not taking.Reported on 02/11/2018 amLODIPine (NORVASC) 2.5 MG tablet Take 1 Tablet by mouth daily. 90 Tablet 04/02/2018Active losartan (COZAAR) 100 MG tablet TAKE ONE TABLET BY MOUTH EVERY DAY 90 Tablet 06/18/2018Active amoxicillin (AMOXIL) 500 MG capsule Take 4 capsules 1 hour prior to appointment 8 Capsule 12/11/2018Active ondansetron (ZOFRAN-ODT) 4 MG disintegrating tablet 11/02/2018Active latanoprost (XALATAN) 0.005 % eye drop solution Place 1 Drop into right eye daily at bedtime. 2.5 mL Active Additional Information Patient not taking.Reported on 02/16/2020 bimatoprost (LUMIGAN) 0.03 % eye drop solution Place 1 Drop into right eye daily. 2.5 mL 1Active amoxicillin (AMOXIL) 500 MG capsule Take 1 Capsule (500 mg) by mouth three times a day. 15 Capsule 4Active ibuprofen (MOTRIN) 600 MG tablet Take 1 Tablet (600 mg) by mouth every 6 hours as needed for Pain. 30 Tablet 08/06/2023ctive Active Problems ProblemNoted DateDiagnosed NzpaFauelnhcaqpa21/04/2021Stage 3a chronic kidney aqfgtly3312/01/2020ssential okcecicvwuyx20/01/2017Cervical clquqa9508/26/2012 Encounters DateTypeDepartmentCare KfdlPyouafflcpm93/18/2025 7:10 AM CSTOffice Visit [facility] [address] [phone] Tabitha Maldonado DDS Restorative Services (Composite 32,23)02/03/2025 10:30 AM CDTOffice Visit Endodontics at [facility] [address] [address] Varghese Maldonado DDS, MS Endodontic Services (Co#13,14)01/24/2025 8:50 AM CDTOffice Visit [facility] [address] [phone] Marry Luong, LGADYS Dental Exam (No CC); Dental Hygiene (Last hyg recall 2021)from Last 3 Months Immunizations ImmunizationAdministration DatesNext DueInfluenza IIV3 (Trivalent) Fluzone Highdose, 65+ Yrs ([address])02/28/2017,01/19/2016Janssen COVID-19 Jwmproc9207/03/2020 PPSV23 (Pneumovax)10/02/2013Tdap10/02/2013Zoster (Zostavax)05/24/2009 Family History Medical HistoryRelationNameCommentsAlcohol/Drug AbuseBirth FatherDiabetes, Type IIBirth MotherHyperlipidemiaBrother 1HypertensionBrother 1Macular Degeneration Brother 1Cancer, ColonBrother 2HyperlipidemiaBrother 2HypertensionBrother 2 DeafnessBrother 3HyperlipidemiaBrother 3HypertensionBrother 3Macular DegenerationBrother 3BlindnessMaternal Grandmotherunknown etiology and brother CataractSister 1Coronary Artery DiseaseSister 1Diabetes, Type IISister 1 HyperlipidemiaSister 1HypertensionSister 1HypertensionSister 2Macular DegenerationSister 2Alzheimer'sSister 3Diabetes, Type IISister 3Hypertension Sister 3Kidney DisorderSister 3Thyroid DisorderSon 3GlaucomaNegative Family HistoryRetinal DetachmentNegative Family HistoryRelationNameStatusCommentsBirth FatherDeceasedBirth MotherDeceasedBrother 1DeceasedBrother 2DeceasedBrother 3 DeceasedDaughter 1AliveDaughter 2AliveMaternal GrandfatherDeceasedMaternal GrandmotherDeceasedOtherAlivehusbandPaternal GrandfatherDeceasedPaternal GrandmotherDeceasedSister 1AliveSister 2AliveSister 3AliveSon 1AliveSon 2Alive Son 3AliveSon 4Alive Social History Tobacco UseTypesPacks/DayYears UsedDateSmoking Tobacco: NeverSmokeless Tobacco: NeverAlcohol UseStandard Drinks/WeekCommentsNo5 (1 standard drink = 0.6 oz pure alcohol)CommentsNoSex and Gender InformationValueDate RecordedSex Assigned at BirthNot on fileLegal TwvFtqzqr37/10/2012 4:22 AM CDTGender Identity Not on fileSexual OrientationNot on fileOccupationIndustryJob Start DateJob End DateADMINISTRATORNot on fileNot on fileNot on file Last Filed Vital Signs Vital SignReadingTime TakenCommentsBlood Qrrnysxe552/7008 8:22 AM CDT Woqxk413001/24/2025 8:50 AM QQYKerehuqcozl02.8 ??C (98.3 ??F)05/04/2017 8:57 AM CSTRespiratory Iqln135305/04/2017 8:57 AM CSTOxygen Saturation--Inhaled Oxygen Concentration--Gfordz52.9 kg (171 lb 12.8 oz)05/04/2017 8:57 AM ZTUXgwqyu952.5 cm (5' 2)05/04/2017 8:57 AM CSTBody Mass Index31.42005/04/2017 8:57 AM INFORMATICS DEVELOPER Plan of Treatment DateTypeDepartmentCare Team (Latest Contact Info)Vkyzohzazrw53/13/2026 10:30 AM CDTAppointment [facility] [place] [address] [place] [phone] [facility] [address] [place], [place] [phone] Health MaintenanceDue DateLast GnqbJarcpxumXxocootdxsa1947Zoster/Shingles Vaccine (2 of 3)Dexa106/08/2011RSV Vaccine (1 - 1-dose 75+ series)2DTaP/Tdap/Td Vaccine (3 - Tdap)/08/2013, 05/30/2010 Medicare Annual Wellness Visit5COVID-19 Vaccine (2 - season) 503/09/2020Influenza Vaccine (#1)512/02/2020, 03/07/2019, 02/20/2018, Additional history existsHep C Screening (Preventive Services) Kyyikmrzj81/29/2015 (Not Applicable)Overridden with the intention of not completing the topicFIT Colon Cancer HlslchmznXrxavrpgmhpc34/07/2017, 08/12/2015, 04/08/20040995JqyopxeiolhNoqpakwjlrpk51/01/2017, 01/19/2016, 11/25/2014, Additional history existsPneumococcal Vaccine 50+ AebFgusnrbdr68/11/2020, 10/02/2013HepA VaccineAged OutNo longer eligible based on patient's age to complete this topicHepB VaccineAged OutNo longer eligible based on patient's age to complete this topicHib VaccineAged OutNo longer eligible based on patient's age to complete this topicMCV4 VaccineAged OutNo longer eligible based on patient's age to complete this topicMeningococcal B VaccineAged OutNo longer eligible based on patient's age to complete this topic Procedures Procedure NamePriorityDate/TimeAssociated IjirrksbdPymfhocn58 MO RESIN-BASED COMPOSITE-2 SURF-GPWEMLAAIFjyrlvl02/18/2025 7:10 AM INFORMATICS DEVELOPER Fractured dental restorative material 23 F COMPOSITE-1 SURFACE RUOOBNBRKndlegp55/18/2025 7:10 AM INFORMATICS DEVELOPER Fractured dental restorative material [facility] [facility] CAPTURE ONLY-LIMITED ELNTRTppopmd45/07/2025 10:30 AM CDT Visit for dental examination 13,14 LIMITED ORAL YMTUHFNIXSErtkhjh01/07/2025 10:30 AM CDT Visit for dental examination 12 FILM-PERIAPICAL WKLYFTyzeodg12/27/2025 8:50 AM CDT Stage 2 grade B generalized periodontitis per AAP/EFP 2017 classification LYNO-BQAYNBHG-PPTHDbggklr07/27/2025 8:50 AM CDT Stage 2 grade B generalized periodontitis per AAP/EFP 2017 classification PERIODIC ORAL QFDIXWRLNDCnirgdb04/27/2025 8:50 AM CDT Stage 2 grade B generalized periodontitis per AAP/EFP 2017 classification PROPHYLAXIS-ADULT EZSJIOVxcmtuo78/27/2025 8:50 AM CDT Stage 2 grade B generalized periodontitis per AAP/EFP 2017 classification FILM-QKSDYGVKBLsrwicf86/27/2025 8:50 AM CDT Stage 2 grade B generalized periodontitis per AAP/EFP 2017 classification LIPID PANEL & DIRECT LDL (IF NEEDED)Zppuubg1102/28/2017 11:13 AM CDT Routine health maintenance JOPOgmpwjs20/07/2017 8:00 AM CDT Special screening for malignant neoplasms, colon from Last 3 Months or Most Recently Relevant to Health Maintenance Results * (ABNORMAL) Lipid Panel and Direct LDL(If Needed) (02/28/2017 11:13 AM CDT) ComponentValueRef RangeTest MethodAnalysis TimePerformed AtPathologist SignatureHours Rhcunsv37eljetVWTB XISZNPUVYEQDPqwirralzdb640(H)0 - 199 mg/dl [facility] HTNRLQMBOESKJduhmxexphch027 - 149 mg/dlHPMG YYERISRYHYYHLZS81>40 mg/dl [facility] LABORATORIESLDL, Calc.131(H)0 - 129 mg/dlHPMG LABORATORIESNon HDL Chol, Aejy689ga/dlHPMG LABORATORIESSpecimen (Source)Anatomical Location / Laterality Collection Method / VolumeCollection TimeReceived Time02/28/2017 11:13 AM CDT 02/28/2017 11:14 AM CDT Narrative [facility] - 02/28/2017 3:46 PM CDT Performed at [facility], [address] [place] [address] Authorizing ProviderResult TypeResult StatusDeepthi DE LA FUENTE_1Final ResultPerforming OrganizationAddressCity/State/ZIP CodePhone Number [facility] [phone] * FIT COLON RECTAL CANCER SCREENING - Year 3 (01/04/2017 8:00 AM CDT)Component ValueRef RangeTest MethodAnalysis TimePerformed AtPathologist SignatureFIT Specimen 1NegativeNEGHPMG LABORATORIESSpecimen (Source)Anatomical Location / LateralityCollection Method / VolumeCollection TimeReceived TimeStool specimen (specimen)01/04/2017 8:00 AM CDT01/04/2017 3:44 PM CDT Narrative [facility] - 01/05/2017 10:55 AM CDT Performed at [facility], [address] [place] [address] Authorizing ProviderResult TypeResult StatusDeepthi DE LA FUENTE_1Final ResultPerforming OrganizationAddressCity/State/ZIP CodePhone Number [facility] [phone] from Last 3 Months or Most Recently Relevant to Health Maintenance Insurance Care Teams Team MemberRelationshipSpecialtyStart [place] [address] [place] [address] PCP - [facility]09/28/17
[2025-04-19 16:40] VITALS: BP 167/97; PULSE 88; RESP 18; TEMP 37; O2SAT 97; BMI 27.4
--- NOTE | 2025-04-19 16:54 | ED.GENADULT ---
HPI - General Adult General Date Seen: 04/19/25 Chief complaint: Weakness Stated complaint: Low Sodium Time Seen by Provider: 04/19/25 16:45 History of Present Illness HPI narrative: Patient is a 80-year-old woman with past medical history notable for hypertension, high cholesterol, hyponatremia, she says that she was up all night vomiting, vomited 5 or 6 times. She knows that she has not vomited today, was able to keep some broth and VA down, but she feels extremely weak and fatigued. She says she has had this before when she has low sodium so that is her primary reason for coming in. She denies any abdominal pain, no diarrhea, black or bloody stools, no chest pain or difficulty breathing, no respiratory symptoms. Related Data Home Medications ?Medication ?Instructions ?Recorded ?Confirmed Sodium choloride PO 11/21/10/09/24 Previous Rx's ?Medication ?Instructions ?Recorded ondansetron 4 mg disintegrating 4 mg PO Q8H #15 tabs 05/09/22 tablet valsartan 80 mg tablet 80 mg PO QDAY #90 tabs 09/03/24 Allergies Allergy/AdvReac Type Severity Reaction Status Date / Time CAM Inhibitors Allergy Mild Cough Verified 10/09/24 13:47 fosinopril Allergy Mild coughing Verified 10/09/24 13:47 lisinopril Allergy Mild coughing Verified 10/09/24 13:47 losartan AdvReac low sodium Verified 10/09/24 13:47 levels Review of Systems Status of ROS: Reports: 10 or more systems reviewed and unremarkable except as noted in History and below PFSH PFSH Medical History Hx of cervical cancer (~1979) ?Z85.41 - Personal history of malignant neoplasm of cervix uteri (ICD-10) Cervical lymphadenopathy ?R59.0 - Localized enlarged lymph nodes (ICD-10) Hyponatremia ?E87.1 - Hypo-osmolality and hyponatremia (ICD-10) Hypertension ?I10 - Essential (primary) hypertension (ICD-10) Surgical History 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) ?Z96.651 - Presence of right artificial knee joint (ICD-10) 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 - Anastacio, had colon cancer screening; . Adult kids ( 6 adult kids) Never smoker alcohol: none Denies recreational drugs What is your current living situation?: I presently have a place to live Problems where you live: no known problems In the past 12 months, utilities in danger of being shut off: no In past 12 months, lack of transportation kept you from medical appts, meetings, work, or getting things needed for daily living: no In the past 12 mos, have been you worried that your food would run out before you had money to buy more?: never true In the past 12 mos, the food you bought just didn't last and you didn't have money to buy more?: never true Smoking Status: Never smoker Do you use any of these nicotine containing products: None Second hand tobacco smoke exposure: No How often do you have a drink containing alcohol: never AUDIT-C Alcohol total score: 0 Non-prescribed substance use: denies use How often does anyone, including family, friends and others, physically hurt you: never How often does anyone, including family, friends and others, insult or talk down to you: never How often does anyone, including family, friends and others, threaten you with harm: never How often does anyone, including family, friends and others, scream or curse at you: never Exam Narrative: Exam Narrative: Vital signs reviewed In general, an alert, nontoxic elderly woman. Breathing easily. Head: Normocephalic, atraumatic. Eyes: Sclera clear. Pupils equal and reactive. ENT: Mucous membranes moist. Neck: Supple without adenopathy. Heart: Regular rate and rhythm without murmur. Lungs: Clear. No increased work of breathing, crackles or wheezes. Abdomen: Soft, nontender to palpation. Extremities: Well perfused, pulses intact. No significant edema. Neurologic: Alert, conversant. Speech fluent, face symmetric. Moves all extremities equally. Skin: Warm, dry well perfused. Affect: Normal. Const: Vital Signs, click to edit/add: Vital Signs - 24 hr 04/19/25 16:40 04/19/25 17:09 04/19/25 17:10 Temperature 98.6 F Pulse Rate 80 80 Pulse Rate [Pulse Oximeter] 88 Respiratory Rate 18 Blood Pressure 170/103 H Blood Pressure [Ri ght Upper Arm] 167/97 H Pulse Oximetry 97 95 96 Oxygen Delivery Me thod Room Air 04/19/25 17:15 Temperature Pulse Rate 76 Pulse Rate [Pulse Oximeter] Respiratory Rate Blood Pressure Blood Pressure [Ri ght Upper Arm] Pulse Oximetry 96 Oxygen Delivery Me thod Course Course ED Course: Patient presents with fatigue and weakness in the setting of vomiting. She has no abdominal pain, no abdominal tenderness and no current vomiting. Declines anything for nausea right now. Will give her some fluids, diagnostic considerations would include hyponatremia, dehydration, other metabolic derangement, acute coronary syndrome, cholecystitis, other intra-abdominal infection, gastroenteritis among others. Patient an EKG which by my review shows a sinus rhythm, some PACs, ventricular rate of 83. No acute ST segment changes, unremarkable T-waves. I have reviewed all of her labs. These are most notable for sodium of 127 magnesium 1.4. Lactate was 2.3. Point of care troponin was normal, CRP was normal, UA notable for trace ketones and otherwise negative. Review of her records shows that she has had sodiums in the 123-1 27 range when she has had prior episodes of this. It does look like she typically presents with this constellation of symptoms with vomiting and weakness and responds well to a L of normal saline. She is feeling improved after saline here, going to replace her magnesium but overall she feels should be able to manage at home. She has not had any further nausea or vomiting. She can double her salt tabs that she takes for couple of days, would recommend repeat sodium in clinic this week. If she has recurrent vomiting or other new symptoms, return to the ER at any time. Diagnosis: Hyponatremia. Vomiting. Hypo magnesemia. Vital Signs Vital signs: Initial Vital Signs Temperature 98.6 F 04/19/25 16:40 Temperature Source Temporal Artery Scan 04/19/25 16:40 Pulse Rate 88 04/19/25 16:40 Respiratory Rate 18 04/19/25 16:40 Blood Pressure 167/97 H 04/19/25 16:40 Blood Pressure Mean 120 H 04/19/25 16:40 Blood Pressure Position Sitting 04/19/25 16:40 Pulse Oximetry 97 04/19/25 16:40 Oxygen Delivery Method Room Air 04/19/25 16:40 Vital Signs Temperature 98.6 F 04/19/25 16:40 Pulse Rate 88 04/19/25 16:40 Respiratory Rate 18 04/19/25 16:40 Blood Pressure 167/97 H 04/19/25 16:40 Pulse Oximetry 97 04/19/25 16:40 Oxygen Delivery Method Room Air 04/19/25 16:40 Temperature 98.6 F 04/19/25 16:40 Pulse Rate 76 04/19/25 17:15 Respiratory Rate 18 04/19/25 16:40 Blood Pressure 170/103 H 04/19/25 17:09 Pulse Oximetry 96 04/19/25 17:15 Oxygen Delivery Method Room Air 04/19/25 16:40 Medications Administered Medications: Discontinued Medications Generic Name Dose Route Start Last Admin Trade Name Freq PRN Reason Stop Dose Admin Sodium Chloride 1,000 mls @ 1,000 mls/hr 04/19/25 17:00 04/19/25 19:25 0.9 % Sodium Chloride 1000 Ml IV 04/19/25 17:59 Infused .Q1H ROBYN Infusion Magnesium Sulfate 2 gm in 50 mls @ 25 mls/hr 04/19/25 18:02 04/19/25 20:07 Magnesium Iv IVPB 04/19/25 20:01 Infused ONCE ONE Infusion Medical Decision Making Lab Data Lab results reviewed: Yes I reviewed the patient's lab results Labs: Lab Results 04/19/25 04/19/25 04/19/25 Range/Units 17:05 17:34 17:40 WBC 8.60 (4.50-11.00) K/uL RBC 3.88 L (4.00-5.20) m/uL Hgb 13.8 (12.0-16.0) gm/dL Hct 38.2 (33.0-51.0) % MCV 99 (80-100) fL MCH 36 H (26-34) pg MCHC 36 (32-36) gm/dL RDW Coeff of Jovany 11.8 (11.5-15.5) % Plt Count 335 (140-440) K/uL Neut % (Auto) 79.7 H (42.0-72.0) % Lymph % (Auto) 11.9 L (20-44) % [place] % (Auto) 7.1 (0.0-11.0) % Eos % (Auto) 0.1 (0.0-7.0) % Baso % (Auto) 0.9 (0.0-3.0) % Neut # (Auto) 6.90 (1.7-7.0) K/uL Lymph # (Auto) 1.00 (0.90-2.90) K/uL [place] # (Auto) 0.60 (0.00-0.90) K/UL Eos # (Auto) 0.01 (0.00-0.50) K/uL Baso # (Auto) 0.08 (0.00-0.30) K/uL Abs Immat Gran (auto) 0.03 (0.00-0.30) K/uL Imm/Tot Granulo (auto) 0.3 % Sodium 127 L (135-149) mmol/L Potassium 3.9 (3.6-5.1) mmol/L Chloride 94 L (96-114) mmol/L Carbon Dioxide 22 (20-32) mmol/L Anion Gap 11 (7-15) mEq/L BUN 6 L (7-30) mg/dL Creatinine 0.5 (0.5-1.5) mg/dL Estimated Creat Clear 36.67 Estimated GFR 96 ml/min Glucose 116 H (60-115) mg/dL Lactate 2.3 H (0.5-1.9) mmol/L Calcium 9.2 (8.4-10.6) mg/dL Magnesium 1.4 L (1.5-2.6) mg/dL Total Bilirubin 1.2 (0.1-1.5) mg/dL AST 34 (12-35) U/L ALT 19 (4-35) U/L Alkaline Phosphatase 57 (40-150) U/L POC Troponin I High Sensi 9.6 (2.9-13.0) pg/mL C-Reactive Protein 0.6 (0.5-1.0) mg/dL Total Protein 7.7 (6.0-8.3) g/dL Albumin 4.6 (3.3-5.0) g/dL Urine Color Light yellow (Yellow) Urine Appearance Clear (Clear) Urine pH 7.0 (5.0-8.5) Ur Specific [place] 1.015 (1.000-1.030) Urine Protein Trace A (Negative) Urine Glucose (UA) Negative (Negative) Urine Ketones Trace A (Negative) Urine Blood Trace-lysed A (Negative) Urine Nitrite Negative (Negative) Urine Bilirubin Negative (Negative) Urine Urobilinogen 0.2 (0.2-1.0) Ur Leukocyte Esterase Negative (Negative) Urine RBC 0-2 (0-2) Urine WBC 0-2 (0-5) Ur Squamous Epith Cells None (None-Few) Urine Bacteria Few A (None) 04/19/25 Range/Units 19:27 WBC (4.50-11.00) K/uL RBC (4.00-5.20) m/uL Hgb (12.0-16.0) gm/dL Hct (33.0-51.0) % MCV (80-100) fL MCH (26-34) pg MCHC (32-36) gm/dL RDW Coeff of Jovany (11.5-15.5) % Plt Count (140-440) K/uL Neut % (Auto) (42.0-72.0) % Lymph % (Auto) (20-44) % [place] % (Auto) (0.0-11.0) % Eos % (Auto) (0.0-7.0) % Baso % (Auto) (0.0-3.0) % Neut # (Auto) (1.7-7.0) K/uL Lymph # (Auto) (0.90-2.90) K/uL [place] # (Auto) (0.00-0.90) K/UL Eos # (Auto) (0.00-0.50) K/uL Baso # (Auto) (0.00-0.30) K/uL Abs Immat Gran (auto) (0.00-0.30) K/uL Imm/Tot Granulo (auto) % Sodium (135-149) mmol/L Potassium (3.6-5.1) mmol/L Chloride (96-114) mmol/L Carbon Dioxide (20-32) mmol/L Anion Gap (7-15) mEq/L BUN (7-30) mg/dL Creatinine (0.5-1.5) mg/dL Estimated Creat Clear Estimated GFR ml/min Glucose (60-115) mg/dL Lactate 1.0 (0.5-1.9) mmol/L Calcium (8.4-10.6) mg/dL Magnesium (1.5-2.6) mg/dL Total Bilirubin (0.1-1.5) mg/dL AST (12-35) U/L ALT (4-35) U/L Alkaline Phosphatase (40-150) U/L POC Troponin I High Sensi (2.9-13.0) pg/mL C-Reactive Protein (0.5-1.0) mg/dL Total Protein (6.0-8.3) g/dL Albumin (3.3-5.0) g/dL Urine Color (Yellow) Urine Appearance (Clear) Urine pH (5.0-8.5) Ur Specific [place] (1.000-1.030) Urine Protein (Negative) Urine Glucose (UA) (Negative) Urine Ketones (Negative) Urine Blood (Negative) Urine Nitrite (Negative) Urine Bilirubin (Negative) Urine Urobilinogen (0.2-1.0) Ur Leukocyte Esterase (Negative) Urine RBC (0-2) Urine WBC (0-5) Ur Squamous Epith Cells (None-Few) Urine Bacteria (None) Discharge Plan Discharge Clinical Impression: Hyponatremia, Hypomagnesemia Patient Disposition: Home, Self-Care Condition: Improved Instructions: Hyponatremia (ED), Hypomagnesemia (ED) Additional Instructions: Your sodium was 127 today, your magnesium was 1.4. Would recommend that you take 2 of your salt tabs a day for the next few days instead of 1. Your sodium can be rechecked later this week in clinic to make sure that it is coming up. If you are feeling worse in any way, have uncontrolled vomiting, worsening weakness, or other new symptoms, return to the emergency department. Prescriptions: No Action valsartan 80 mg tablet 80 mg PO QDAY Qty: 90 3RF Rx Instructions: once daily for blood pressure Sodium choloride PO ondansetron 4 mg tablet,disintegrating 4 mg PO Q8H Qty: 15 0RF Follow Up/Referrals: Aleisha Sagastume PA-C [Primary Care Provider, Family Practice] Stand Alone Forms: ID [employer] Info Instructions
[2025-04-19 17:09] VITALS: BP 170/103; PULSE 80; O2SAT 95
[2025-04-19 17:10] VITALS: PULSE 80; O2SAT 96
[2025-04-19 17:15] VITALS: PULSE 76; O2SAT 96
[2025-04-19 17:17] LABS: Lactate Sepsis w/Reflex* 2.3 mmol/L (0.5-1.9)
[2025-04-19 17:18] LABS: Hematocrit* 38.2 % (33.0-51.0); Hemoglobin* 13.8 gm/dL (12.0-16.0); Immature Granulocytes Abs Auto 0.03 K/uL (0.00-0.30); Immature Granulocytes Pct Auto 0.3 %; Lymphocytes Absolute Auto 1.00 K/uL (0.90-2.90); Mean Corpuscular HGB Conc 36 gm/dL (32-36); Mean Corpuscular Hemoglobin 36 pg (26-34); Mean Corpuscular Volume 99 fL (80-100); RDW Coefficient of Variation % 11.8 % (11.5-15.5); Red Blood Count* 3.88 m/uL (4.00-5.20); White Blood Count* 8.60 K/uL (4.50-11.00)
[2025-04-19 17:19] LABS: Slide Review Reflex No
[2025-04-19 17:34] LABS: Albumin* 4.6 g/dL (3.3-5.0); Chloride* 94 mmol/L (96-114); Sodium* 127 mmol/L (135-149)
[2025-04-19 17:35] LABS: Potassium* 3.9 mmol/L (3.6-5.1)
[2025-04-19 17:37] LABS: Alanine Aminotransferase* 19 U/L (4-35); Anion Gap 11 mEq/L (7-15); Aspartate Amino Transferase* 34 U/L (12-35); Blood Urea Nitrogen* 6 mg/dL (7-30); Carbon Dioxide* 22 mmol/L (20-32); Creatinine* 0.5 mg/dL (0.5-1.5); Est. Creatinine Clearance* 36.67; Estimated Glomerular Filt Rate 96 ml/min; Total Protein* 7.7 g/dL (6.0-8.3)
[2025-04-19 17:38] LABS: Alkaline Phosphatase* 57 U/L (40-150); Bilirubin Total* 1.2 mg/dL (0.1-1.5); Calcium* 9.2 mg/dL (8.4-10.6); Glucose* 116 mg/dL (60-115)
[2025-04-19 17:49] LABS: Appearance Urine Clear (Clear)
[2025-04-19] MEDS: MAGNESIUM IV 2 GM/50 ML PIGGYBACK IVPB (18:12)
[2025-04-19 19:31] LABS: Lactate Sepsis 2 Hour 1.0 mmol/L (0.5-1.9)
== END 2025-04-19 20:11 | disposition home or self-care (01) ==
PROVIDERS: Emergency Provider Emergency Medicine; PCP Physician Assistant Medical
DX: E87.1 Hypo-osmolality and hyponatremia (principal); E83.42 Hypomagnesemia; R82.90 Unspecified abnormal findings in urine
CPT/HCPCS: 36415; 80053; 81001; 83605; 83735; 84484; 85025; 86140; 87086; 93005; 96361; 96365; 96366; 99284; J3475; J7030

== ENCOUNTER 2025-04-24 08:08 | Outpatient (CLI) | payer OTHER, SELFPAY | END 2025-04-24 08:09 | disposition home or self-care (01) | PROVIDERS: PCP Physician Assistant Medical; Visit Provider Physician Assistant Medical | DX: E87.1 Hypo-osmolality and hyponatremia (principal); E83.42 Hypomagnesemia | CPT/HCPCS: 82043; 82570; 82607; 83735; 83930 ==